=== PATIENT | female | born 1960 | race African-American/Black ===

== ENCOUNTER → 2020-02-07 | Outpatient (CLI) | payer MEDICARE, MEDICAID ==
--- NOTE | 2020-02-07 14:18 | RADIOLOGY REPORT (SQ) ---
EXAM DESCRIPTION: ARTERIAL LOWER EXTREM UNILAT IMAGES COMPLETED DATE/TIME: 02/07/2020 10:20 am REASON FOR STUDY: LUE NEUROPATHY M79.2 NEURALGIA AND NEURITIS, UNSPECIFIED COMPARISON: None. TECHNIQUE: Dynamic and static garcia scale and color images acquired of the left upper extremity arter ies. Additional selected spectral images recorded. Images saved to PACS. LIMITATIONS: None. FINDINGS: SUBCLAVIAN: Normal Doppler waveforms. No velocity elevation to suggest stenosis. AXILLARY: Normal Doppler waveforms. No velocity elevation to suggest stenosis. Normal color Doppler evaluation. BRACHIAL: Normal Doppler waveforms. No velocity elevation to suggest stenosis. Normal color Doppler evaluation. RADIAL: Normal Doppler waveforms. No velocity elevation to suggest stenosis. Normal color Doppler e valuation. ULNAR: Normal Doppler waveforms. No velocity elevation to suggest stenosis. Normal color Doppler ev aluation. OTHER: No other significant finding. IMPRESSION: No significant stenosis. TECHNICAL DOCUMENTATION: JOB ID: [id number] 2010 [employer]- All Rights Reserved Reading location - IP/workstation name: [email or web address]
== END ==
LOC: SP 08:28
PROVIDERS: ATTEND Internal Medicine Nephrology
DX: M79.2 Neuralgia and neuritis, unspecified (principal)
CPT/HCPCS: 93926

== ENCOUNTER 2020-08-12 22:10 | Emergency (ER) | payer MEDICARE, MEDICAID ==
[2020-08-12 22:20] VITALS: BP 147/74
--- NOTE | 2020-08-12 23:38 | ER Document Report ---
ED Medical Screen (RME) - General Chief Complaint: Vaginal Bleeding Stated Complaint: BLEEDING OVARION CYST Time Seen by Provider: 08/12/20 23:14 - HPI Notes: Patient is a 60-year-old female who presents with heavy vaginal bleeding that started today. Patient states she has soaked through 4 large pads. Patient states she was seen in the emergency department here at [facility] 2 days ago and had a full work-up done that showed an enlarged ovary with a cyst. She was told to return to the emergency department if she began to have vaginal bleeding. However there are no records for her visit 2 days ago even though patient is ad amant she was seen at this hospital. Patient was advised to follow-up with her [employer]ST[employer] however she has not been able to get an appointment as it is currently Thursday. Patient denies any chest pain, shortness of breath or fever. - Related Data Allergies/Adverse Reactions: amoxicillin Allergy (Verified 04/30/20 08:24) tomato Allergy (Verified 04/30/20 08:24) Past Medical History - Social History Frequency of alcohol use: None Drug Abuse: None - Past Medical History Cardiac Medical History: Reports: Hx Hypertension Endocrine Medical History: Reports: Hx Diabetes Mellitus Type 2 Renal/ Medical History: Reports: Hx End Stage Renal Disease GI Medical History: Reports: Hx Gastroesophageal Reflux Disease Physical Exam - Vital signs Vitals: Temp Pulse Resp BP Pulse Ox 98.8 F 73 18 147/74 H 95 08/12/20 22:19 08/12/20 22:19 08/12/20 22:19 08/12/20 22:19 08/12/20 22:19 - Respiratory Respiratory status: No respiratory distress - Abdominal Bowel sounds: Normal Tenderness: Nontender Notes: Exam limited due to patient seated position in triage. Course - Re-evaluation Re-evalutation: I have greeted and performed a rapid initial assessment of this patient. A comprehensive ED assessment and evaluation of the patient, analysis of test results and completion of medical decision making process will be conducted by an additional ED providers. - Vital Signs Vital signs: Temp Pulse Resp BP Pulse Ox 98.8 F 73 18 147/74 H 95 08/12/20 22:19 08/12/20 22:19 08/12/20 22:19 08/12/20 22:19 08/12/20 22:19
[2020-08-13] MEDS ORDERED: ONDANSETRON HCL INJ/PF 4 MG/2 ML SDV IV ONE (01:16)
[2020-08-13] MEDS ORDERED: MORPHINE SULFATE 10 MG/ML INJ IV ONE (01:16)
--- NOTE | 2020-08-13 01:17 | ER Document Report ---
ED GI/ - General Chief Complaint: Vaginal Bleeding Stated Complaint: BLEEDING OVARION CYST Time Seen by Provider: 08/12/20 23:14 Primary Care Provider: [facility] [Provider Group] - 08/13/20 Notes: Patient is a 52-year-old female who comes emergency department for chief complaint of pelvic cramping and vaginal bleeding that started yesterday. She states that she changed her pad 4 times a day although she denies soaking through this. She states she is not bleeding heavily but she notices blood each time she goes to the bathroom. She states that she was seen at an emergency department 2 days ago, she states she was told she had an enlarged ovary with a cyst and she was told to be reevaluated if she started having bleeding again. She states she thinks she was seen at this hospital although the record does not show this. Patient has a history of type 2 diabetes, hypertension, and end- stage renal disease on dialysis (Thursday, states she has not missed). She also has a history of CVA with left sided weakness. She has had C- sections but no other abdominal surgeries. She denies problems with vaginal bleeding previously. - Related Data Allergies/Adverse Reactions: amoxicillin Allergy (Verified 04/30/20 08:24) tomato Allergy (Verified 04/30/20 08:24) Past Medical History - General Information source: Patient - Social History Smoking Status: Current Every Day Smoker Frequency of alcohol use: None Drug Abuse: None Lives with: Family Family History: Reviewed & Not Pertinent - Past Medical History Cardiac Medical History: Reports: Hx Hypertension Endocrine Medical History: Reports: Hx Diabetes Mellitus Type 2 Renal/ Medical History: Reports: Hx End Stage Renal Disease GI Medical History: Reports: Hx Gastroesophageal Reflux Disease Past Surgical History: Reports: Hx Section - Immunizations Immunizations up to date: Yes Hx Diphtheria, Pertussis, Tetanus Vaccination: Yes Review of Systems - Review of Systems Constitutional: No symptoms reported EENT: No symptoms reported Cardiovascular: No symptoms reported Respiratory: No symptoms reported Gastrointestinal: See HPI Genitourinary: No symptoms reported Female Genitourinary: See HPI Musculoskeletal: No symptoms reported Skin: No symptoms reported Hematologic/Lymphatic: No symptoms reported Neurological/Psychological: No symptoms reported Physical Exam - Vital signs Vitals: Temp Pulse Resp BP Pulse Ox 98.8 F 73 18 147/74 H 95 08/12/20 22:19 08/12/20 22:19 08/12/20 22:19 08/12/20 22:19 08/12/20 22:19 - Notes Notes: GENERAL: Alert, interacts well. No acute distress. HEAD: Normocephalic, atraumatic. EYES: Pupils equal, round, and reactive to light. Extraocular movements intact. ENT: Oral mucosa moist, tongue midline. Oropharynx unremarkable. Airway patent. LUNGS: Clear to auscultation bilaterally, no wheezes, rales, or rhonchi. No respiratory distress. Non-tender chest wall. HEART: Regular rate and rhythm. No murmur ABDOMEN: Minimal general lower abdominal tenderness with no specific area of tenderness or guarding. No rigidity or distention. GENITOURINARY: No discharge, very minimal vaginal bleeding, no concerning external findings, no lesions, negative for cervical motion tenderness. Exam performed with Dimple RN at bedside. EXTREMITIES: Moves all 4 extremities spontaneously. No edema, normal radial and dorsalis pedis pulses bilaterally. No cyanosis. BACK: no cervical, thoracic, lumbar midline tenderness. No saddle anesthesia, normal distal neurovascular exam. Moves all extremities in full range of motion. NEUROLOGICAL: Alert and oriented x3. Normal speech. Cranial nerves II through XII grossly intact. Strength 5/5 in all extremities. PSYCH: Normal affect, normal mood. SKIN: Warm, dry, normal turgor. No rashes or lesions noted. Course - Re-evaluation Re-evalutation: CBC unremarkable with borderline hemoglobin, chemistry shows expected results with dialysis patient but generally unremarkable, pelvic exam performed, the swabs were contaminated because there was some difficulty performing this because patient has left-sided weakness, however I was able to evaluate and there was no noted bleeding or significant discharge, no cervical motion tenderness, not consistent with pelvic infection. There is almost no blood on the pad as well. Patient does not appear to be significantly bleeding. Vital signs unremarkable. Ultrasound showing left cystic mass as 7.5 cm in the left ovarian area although there is no ovarian tissue to obtain Doppler for. I called and spoke with Dr. Oliveros, B[employer]ESSER button maker. Recommendation is for patient to be discharged with referral for very close follow-up in the office for biopsy and probably scheduling surgery. I discussed this with patient at length, arnol ramos states that she will call tomorrow to be seen in very close follow-up for management of this. I discussed return cautions. Patient states understanding and agreement. Stable and well-appearing at time of discharge. - Vital Signs Vital signs: Temp Pulse Resp BP Pulse Ox 98.8 F 73 18 147/74 H 95 08/12/20 22:19 08/12/20 22:19 08/12/20 22:19 08/12/20 22:19 08/12/20 22:19 - Laboratory Results Result Diagrams: 08/13/20 01:17 08/13/20 01:17 Laboratory Results Interpreted: 08/13/20 08/13/20 01:17 01:17 Hgb 11.0 L Hct 33.6 L RDW 16.3 H BUN 58 H Creatinine 15.04 H Est GFR ( Amer) 3 L Est GFR (MDRD) Non-Af 2 L Glucose 180 H Direct Bilirubin 0.6 H Alkaline Phosphatase 152 H Total Protein 8.7 H Critical Laboratory Results Reviewed: No Critical Results - Radiology Results Critical Radiology Results Reviewed: No Critical Results Discharge - Discharge Clinical Impression: Vaginal bleeding, Pelvic pain Condition: Stable Disposition: HOME, SELF-CARE Additional Instructions: You have an abnormal cystic area in the left pelvis at your ovary location. I spoke with Dr. Oliveros, BODY PRESSER, they are expecting you to follow-up closely in the office. Please call tomorrow to set this up. It is very important that you follow-up and obtain treatment/management, if you delay this you could have severe complications including potentially developing cancer that spreads. Come back if you are worse including severe worsening pain, vomiting, heavy bleeding (i.e. greater than 1 pad an hour), dizziness or passing out, or any other concerning symptoms. Referrals: [facility] [Provider Group] - 08/13/20
[2020-08-13 01:30] LABS: ABSOLUTE BASOPHILS # (AUTO) 0.1 10^3/uL (0.0-0.2); ABSOLUTE EOSINOPHILS # (AUTO) 0.2 10^3/uL (0.0-0.6); ABSOLUTE LYMPHOCYTES (AUTO) 2.2 10^3/uL (0.5-4.7); ABSOLUTE MONOCYTES (AUTO) 0.5 10^3/uL (0.1-1.4); ABSOLUTE NEUT (AUTO) 6.4 10^3/uL (1.7-8.2); BASOPHILS % (AUTO) 0.9 % (0-2); EOSINOPHILS % (AUTO) 2.5 % (0-6); HEMATOCRIT 33.6 % (36.0-47.0); LYMPHOCYTES % (AUTO) 23.4 % (13-45); MEAN CORPUSCULAR HEMOGLOBIN 28.2 pg (27.0-33.4); MEAN CORPUSCULAR HGB CONC 32.8 g/dL (32.0-36.0); MEAN CORPUSCULAR VOLUME 86 fl (80-97); MONOCYTES % (AUTO) 5.4 % (3-13); PLATELET COUNT 228 10^3/uL (150-450); RED CELL DISTRIBUTION WIDTH 16.3 % (11.5-14.0); SEGMENTED NEUTROPHILS % (AUTO) 67.8 % (42-78); TOTAL CELLS COUNTED % (AUTO) 100 %; WHITE BLOOD COUNT 9.5 10^3/uL (4.0-10.5)
[2020-08-13 01:33] LABS: INTERNATIONAL RATION (INR) 0.97; PROTHROMBIN TIME 13.1 SEC (11.4-15.4)
[2020-08-13 01:34] LABS: PARTIAL THROMBOPLASTIN TIME 32.2 SEC (23.5-35.8)
[2020-08-13 01:48] LABS: ALBUMIN 4.5 g/dL (3.5-5.0); ALKALINE PHOSPHATASE 152 U/L (38-126); ANION GAP 18 (5-19); ASPARTATE AMINO TRANSFERASE 24 U/L (14-36); BILIRUBIN,DIRECT 0.6 mg/dL (0.0-0.4); BILIRUBIN,TOTAL 0.8 mg/dL (0.2-1.3); BLOOD UREA NITROGEN 58 mg/dL (7-20); CARBON DIOXIDE 23 mmol/L (22-30); CHLORIDE 99 mmol/L (98-107); GLUCOSE 180 mg/dL (75-110); POTASSIUM 3.9 mmol/L (3.6-5.0); TOTAL PROTEIN 8.7 g/dL (6.3-8.2)
--- NOTE | 2020-08-13 01:51 | RADIOLOGY REPORT (SQ) ---
EXAM DESCRIPTION: US PELVIS TRANSVAGINAL COMPLETED DATE/TME: 08/13/2020 00:59 CLINICAL HISTORY: 60 years Female, vaginal bleeding, evaluate for uterine fibroids COMPARISON: None. TECHNIQUE: Complete pelvic ultrasound obtained with transvaginal imaging. FINDINGS: Uterus: The uterus measures 8.9 x 4.1 x 3.6 cm. Echogenic foci in the uterine myometrium may represent calcifications. Endometrium: Endometrium measures 0.5 cm. Right ovary: The right ovary is not visualized due to overlying bowel gas. Left ovary: There is a 7.6 x 6.1 x 5.4 cm left adnexal cyst. Adnexa: No additional adnexal findings. Free fluid: No free fluid. Duplex imaging: No definite solid ovarian tissue identified to evaluate for duplex imaging. IMPRESSION: 1. There is a 7.6 cm cystic left adnexal structure. MRI of the pelvis with contrast or surgical consultation recommended. 2. Coarse echogenic foci in the uterine myometrium may represent calcifications. No definite fibroids identified. 3. Endometrium is upper limits of normal. 4. The endometrium and myometrium can more accurately be characterized on MRI of the pelvis with contrast is recommended above.
[2020-08-13] MEDS ORDERED: DIPHENHYDRAMINE HCL 50 MG/ML VIAL IV ONE (01:54)
[2020-08-13 03:14] LABS: RBCS (WET MOUNT) NO RBCS SEEN; T.VAGINALIS (WET MOUNT) NO TRICHOMONAS SEEN; WBCS (WET MOUNT) 1+ WBCS SEEN; YEAST (WET MOUNT) NO YEAST SEEN
[2020-08-13 03:15] LABS: BACTERIA (WET MOUNT) 4+ BACTERIA SEEN; EPITHELIALS (WET MOUNT) 3+ EPITHELIALS SEEN
[2020-08-13 04:45] LABS: CHLAM PCR NOT DETECTED (NOT DETECT)
== END 2020-08-13 04:21 | disposition home or self-care (01) ==
LOC: ER 22:10 → MERGE 22:10 → ER 08-13 04:21
DX: N93.9 Abnormal uterine and vaginal bleeding, unspecified (principal); N83.202 Unspecified ovarian cyst, left side; R10.2 Pelvic and perineal pain; I69.354 Hemiplegia and hemiparesis following cerebral infarction affecting left non-dominant side; I12.0 Hypertensive chronic kidney disease with stage 5 chronic kidney disease or end stage renal disease; E11.22 Type 2 diabetes mellitus with diabetic chronic kidney disease; N18.6 End stage renal disease; Z99.2 Dependence on renal dialysis; F17.200 Nicotine dependence, unspecified, uncomplicated; Z88.0 Allergy status to penicillin; Z91.018 Allergy to other foods; R10.819 Abdominal tenderness, unspecified site
CPT/HCPCS: 99285; 96374; 96375; 86900; 86901; 36415; 87210; 86850; 85025; 85610; 85730; 80053; 87491; 87591; 76830; 93976; J1200; J2270; J2405